=== PATIENT | female | born 1970 | race Two or more races ===

== ENCOUNTER 2023-01-25 09:50 | Emergency (ER) | payer OTHER ==
[~2023-01-25] VITALS: Ht 152.4 cm; Wt 90.7 kg
[2023-01-25] MEDS ORDERED: ZOVIRAX200 MG PO (10:10)
[2023-01-25] MEDS ORDERED: TOPROL XL25 M1 PO (11:08)
== END 2023-01-25 11:16 | disposition home or self-care (01) ==
LOC: ER 09:50
DX: R00.2 Palpitations (principal); R53.81 Other malaise